=== PATIENT | male | born 1950 | race Caucasian/White ===

== ENCOUNTER 2019-10-08 15:38 | Emergency (ER) | payer OTHER ==
[~2019-10-08] VITALS: Ht 182.9 cm; Wt 108.9 kg
[~2019-10-08 15:38] MED LIST: ALLEGRA ALLERG180 MG PO; ASPIRIN81 M2 PO; COREG3.125 MG PO; CYCLOBENZAPRINE5 MG PO; FISH OIL 1,001000 M2 PO; FLOMAX0.4 MG PO; HYDROCODON-ACE1 EAC7 PO; HYDROCODON-ACE1 EAC8 PO; HYZAAR 100-12.1 EACH PO; IBUPROFEN 800800 MG PO; INVOKANA300 MG PO; LIPITOR10 MG PO; LOSARTAN-HCTZ1 EAC2 PO; METFORMIN HCL500 MG PO; MULTI VITAMIN1 EACH PO; NORVASC2.5 MG PO; PEPCID20 MG PO; PREDNISONE 20 M20 M1 PO; SENNA PO; TRICOR48 MG PO; VITAMIN D1000 UNI1 PO
[2019-10-08] MEDS ORDERED: NAPROSYN500 MG PO (17:06)
[2019-10-08 17:12] VITALS: BP 160/75
== END 2019-10-08 17:21 | disposition home or self-care (01) ==
LOC: ER 15:38
DX: M25.561 Pain in right knee (principal); M25.461 Effusion, right knee; I10 Essential (primary) hypertension; E11.9 Type 2 diabetes mellitus without complications; E78.5 Hyperlipidemia, unspecified; G47.30 Sleep apnea, unspecified; F17.210 Nicotine dependence, cigarettes, uncomplicated; Z90.49 Acquired absence of other specified parts of digestive tract

== ENCOUNTER → 2020-10-21 | Outpatient (CLI) | payer OTHER ==
[~2020-10-21] MED LIST changes: +NAPROSYN500 MG PO
== END ==
LOC: CAT 10:46
PROVIDERS: ATTEND Pediatrics
DX: Z12.2 Encounter for screening for malignant neoplasm of respiratory organs (principal); I25.10 Atherosclerotic heart disease of native coronary artery without angina pectoris; M25.78 Osteophyte, vertebrae; R91.8 Other nonspecific abnormal finding of lung field; Z87.891 Personal history of nicotine dependence

== ENCOUNTER 2021-02-20 11:49 | Emergency (ER) | payer OTHER ==
[~2021-02-20] VITALS: Ht 182.9 cm; Wt 115.7 kg
[2021-02-20 12:27] LABS: HEMATOCRIT 40.7 % (42.0-52.0); HEMOGLOBIN 13.8 gm/dL (14.0-18.0); MCHC 33.8 g/dL (28.0-37.0); MCV 91.9 fL (80.0-100.0); RBC 4.43 mil/uL (4.50-6.00); WBC 6.1 thou/uL (4.0-11.0)
[2021-02-20 12:35] LABS: ANION GAP 13 mmol/L (7-16); BUN 31 mg/dL (7-18); CALCIUM 9.8 mg/dL (8.5-10.1); CHLORIDE 104 mmol/L (98-107); CO2 25 mmol/L (21-32); CREATININE 1.6 mg/dL (0.7-1.3); GLUCOSE 163 mg/dL (74-106); POTASSIUM 4.2 mmol/L (3.5-5.1); SODIUM 142 mmol/L (136-145)
[2021-02-20 12:42] LABS: SGOT 30 U/L (15-37); SGPT 43 U/L (16-63); TOTAL BILIRUBIN 0.5 mg/dL (0.2-1.0); TOTAL PROTEIN 7.2 g/dL (6.4-8.2); TROPONIN-I <0.06 ng/mL (<0.06)
[2021-02-20 13:57] LABS: URINE BILIRUBIN NEGATIVE (Negative); URINE BLOOD NEGATIVE (Negative); URINE CLARITY CLEAR; URINE COLOR YELLOW; URINE GLUCOSE-RANDOM* NEGATIVE (Negative); URINE KETONES NEGATIVE (Negative); URINE LEUKOCYTES-REFLEX NEGATIVE (Negative); URINE PROTEIN (DIPSTICK) TRACE (Negative); URINE SPECIFIC GRAVITY 1.015 (1.005-1.035); URINE UROBILINOGEN 0.2 E.U./dl (0.2-1.0)
[2021-02-20 13:58] LABS: URINE NITRITE-REFLEX POSITIVE (Negative)
[2021-02-20 14:18] LABS: CASTS None Seen /LPF (None Seen); CRYSTALS None Seen /LPF (None Seen); SQUAMOUS 0-3 Few /LPF (0-3)
[2021-02-20 14:19] LABS: BACTERIA-REFLEX >30 Many /HPF (None Seen)
[2021-02-20 14:20] LABS: URINE RBC None Seen /HPF (0-2); URINE WBC-REFLEX 0-5 Rare /HPF (0-5)
[2021-02-20] MEDS ORDERED: KEFLEX500 M1 PO (14:51)
[2021-02-20] MEDS ORDERED: ZOFRAN ODT4 MG PO (14:51)
[2021-02-20] MEDS ORDERED: NORCO5 PO (14:51)
[2021-02-20 15:00] VITALS: BP 141/62
== END 2021-02-20 15:00 | disposition home or self-care (01) ==
LOC: ER 11:49
PROVIDERS: Nurse Practitioner Family
DX: N20.1 Calculus of ureter (principal); N39.0 Urinary tract infection, site not specified; I10 Essential (primary) hypertension; E78.5 Hyperlipidemia, unspecified; E11.9 Type 2 diabetes mellitus without complications; F17.210 Nicotine dependence, cigarettes, uncomplicated; Z79.1 Long term (current) use of non-steroidal anti-inflammatories (NSAID); Z79.82 Long term (current) use of aspirin; Z79.899 Other long term (current) drug therapy

== ENCOUNTER → 2021-05-07 | Outpatient (CLI) | payer OTHER ==
[~2021-05-07] MED LIST changes: +KEFLEX500 M1 PO; +NORCO5 PO; +ZOFRAN ODT4 MG PO
== END ==
LOC: CAT 09:21
PROVIDERS: ATTEND Pediatrics
DX: R91.1 Solitary pulmonary nodule (principal)